=== PATIENT | female | born 1965 | race Caucasian/White ===

== ENCOUNTER 2016-05-22 10:00 | Emergency (ER) | payer SELFPAY ==
[~2016-05-22] VITALS: Ht 160 cm; Wt 68.0 kg
[~2016-05-22 10:00] MED LIST: ATEN-100 PO
[2016-05-22 10:05] VITALS: BP 136/63; PULSE 70; RESP 20; TEMP 97.8; O2SAT 96
[2016-05-22] MEDS ORDERED: VIST50CA PO (11:43)
--- NOTE | 2016-05-22 11:44 | PD ---
HPI Chief Complaint: Anxiety Time Seen by Provider: 11:42 Travel History International Travel<30 days: No Contact w/Intl Traveler<30days: No Traveled to known affect area: No History of Present Illness HPI 51-year-old female with history of anxiety, recent tragic of her daughter , presents to the emergency department requesting a prescription for "Ativan or Valium but Valium works best" to help with her anxiety. Patient has not yet sought evaluation or counseling for her anxiety. PFSH Past Medical History Heart Rhythm Problems: Yes Cardiovascular Problems: Yes Chest Pain: Yes Cerebrovascular Accident: No Diabetes: No Diminished Hearing: No Hypertension: Yes Myocardial Infarction: No : 10 Para: 5 Miscarriage: 3 : 2 Past Surgical History Cardiac Surgery: Yes (ABLATION ) Social History Alcohol Use: Yes (OCCASIONAL) Tobacco Use: No Substance Use: No Allergies-Medications (Allergen,Severity, Reaction): Coded Allergies: No Known Allergies (Unverified , 05/22/16) Reported Meds & Prescriptions Reported Meds & Active Scripts Active Vistaril (Hydroxyzine Pamoate) 50 Mg Cap 50 Mg PO TID PRN Reported Atenolol 25 Mg Tab 75 Mg PO DAILY Review of Systems Except as stated in HPI: all other systems reviewed are Neg Physical Exam Narrative GENERAL: Well-nourished female patient, in no acute distress SKIN: Warm and dry. HEAD: Atraumatic. Normocephalic. EYES: Pupils equal and round. No scleral icterus. No injection or drainage. ENT: No nasal bleeding or discharge. Mucous membranes pink and moist. NECK: Trachea midline. No JVD. CARDIOVASCULAR: Regular rate and rhythm. No murmur appreciated. RESPIRATORY: No accessory muscle use. Clear to auscultation. Breath sounds equal bilaterally. GASTROINTESTINAL: Abdomen soft, non-tender, nondistended. Hepatic and splenic margins not palpable. MUSCULOSKELETAL: No obvious deformities. No clubbing. No cyanosis. No edema. NEUROLOGICAL: Awake and alert. No obvious cranial nerve deficits. Motor grossly within normal limits. Normal speech. Data Data Last Documented VS Vital Signs Date Time Temp Pulse Resp B/P Pulse Ox O2 Delivery O2 Flow Rate FiO2 05/22/16 12:00 88 18 142/78 98 05/22/16 10:05 97.8 Room Air Orders Electrocardiogram (05/22/16 10:27) [facility] Medical Decision Making Medical Screen Exam Complete: Yes Emergency Medical Condition: Yes Medical Record Reviewed: Yes Differential Diagnosis Anxiety versus adjustment reaction disorder versus mood disorder versus personality disorder Narrative Course 51-year-old female presents to the emergency department requesting Valium or Ativan by name for anxiety associated with her daughter's recent . Patient has not yet sought counseling or psychiatric evaluation for her anxiety. She appears without distress. I have explained to her that I can give her a prescription for Vistaril here in the emergency department but follow -up is strongly encouraged so she can utilize appropriate coping mechanisms and be followed closely. This is likely an adjustment reaction disorder with associated anxiety. She is in agreement this clinic here. She'll be discharged at this time. Diagnosis Primary Impression: Anxiety Additional Impression: Adjustment reaction with anxiety Referrals: Primary Care Physician Patient Instructions: Anxiety (ED), General Instructions Departure Forms: Tests/Procedures, Work Release Enter return to work date: May 24, 2016 Additional Instructions: Seek counseling or psychiatric evaluation to help and properly manage with your anxiety Follow-up with a primary care provider Return immediately to the emergency department with any acute worsening of symptoms Med/Other Pt SpecificInfo: Prescription(s) given Scripts Hydroxyzine Pamoate (Vistaril)50 Mg Cap50 Mg PO TID PRN (ANXIETY) #21 CAP Ref 0 Prov:Germaine Machado 05/22/16 Disposition: 01 DISCHARGE HOME Condition: Stable Germaine Machado May 22, 2016 11:44
[2016-05-22 12:00] VITALS: BP 142/78
[2016-05-22] MEDS ORDERED: ATEN25TA PO (12:00)
--- NOTE | 2016-05-22 12:22 | EKG ---
Date Performed: 05/22/2016 Time Performed: 10:38:35 PTAGE: 51 years EKG: SINUS BRADYCARDIA NONSPECIFIC T-WAVE ABNORMALITY BORDERLINE ECG INTERPRETATION BASED ON A D EFAULT AGE OF 40 YEARS NO PREVIOUS TRACING DOCTOR: Javier Martínez Interpretating Date/Time 05/22/2016 12:19:56
== END 2016-05-22 12:03 | disposition home or self-care (01) ==
LOC: NETRI 10:00
DX: F41.9 Anxiety disorder, unspecified (principal); F43.22 Adjustment disorder with anxiety; I10 Essential (primary) hypertension; R94.31 Abnormal electrocardiogram [ECG] [EKG]
CPT/HCPCS: 93005

== ENCOUNTER 2016-11-05 18:34 | Emergency (ER) | payer SELFPAY ==
[~2016-11-05] VITALS: Ht 160 cm; Wt 75.0 kg
[~2016-11-05 18:34] MED LIST changes: -ATEN-100 PO; +ATEN25TA PO; +VIST50CA PO
[2016-11-05 18:36] VITALS: BP 192/89; PULSE 82; RESP 18; TEMP 98.2; O2SAT 97
[2016-11-05] MEDS ORDERED: PERM5CRE TOPICAL (19:28)
--- NOTE | 2016-11-05 19:28 | PD ---
HPI Chief Complaint: Skin Problem Time Seen by Provider: 19:23 Travel History International Travel<30 days: No Contact w/Intl Traveler<30days: No Traveled to known affect area: No History of Present Illness HPI Patient is a 51-year-old female presenting to emergency for evaluation of a rash. Patient states itchy. She denies any new soaps, lotions, detergents. She states that she was staying at home with multiple people and states she feels as if she has scabies. The rash is itchy ear at night, it is more prevalent in the folds of her arms, under her breasts, her wrists. She denies any fevers, chills, shortness of breath. She believes is scabies. Additionally patient states that she has a history of hypertension and takes atenolol 50 mg twice daily but did not take her medications this morning. She states that her prescription needs to be refilled, she does have an available prescription but has not filled it yet. PFSH Past Medical History Atrial Fibrillation: Yes Heart Rhythm Problems: Yes Cardiovascular Problems: Yes Chest Pain: Yes Cerebrovascular Accident: No Diabetes: No Diminished Hearing: No Hypertension: Yes Myocardial Infarction: No Tetanus Vaccination: Unknown ?: Not : 10 Para: 5 Miscarriage: 3 : 2 Past Surgical History Surgical History: No Previous Surgery Cardiac Surgery: Yes (ABLATION ) Social History Alcohol Use: No Tobacco Use: No Substance Use: No Allergies-Medications (Allergen,Severity, Reaction): Coded Allergies: No Known Allergies (Unverified , 11/05/16) Reported Meds & Prescriptions Reported Meds & Active Scripts Active Reported Atenolol 25 Mg Tab 50 Mg PO BID Review of Systems Except as stated in HPI: all other systems reviewed are Neg Skin: Positive Rash, Positive Itching Physical Exam Narrative GENERAL: Well-nourished, well-developed patient. SKIN: Focused skin assessment warm/dry. Macular, linear rash in bilateral antecubital spaces, under breasts, abdomen, wrists. No induration or erythema, no drainage noted. Mild excoriation on wrists. HEAD: Normocephalic. EYES: No scleral icterus. No injection or drainage. NECK: Supple, trachea midline. No JVD or lymphadenopathy. CARDIOVASCULAR: Regular rate and rhythm without murmurs, gallops, or rubs. RESPIRATORY: Breath sounds equal bilaterally. No accessory muscle use. GASTROINTESTINAL: Abdomen soft, non-tender, nondistended. MUSCULOSKELETAL: No cyanosis, or edema. BACK: Nontender without obvious deformity. No CVA tenderness. Data Data Last Documented VS Vital Signs Date Time Temp Pulse Resp B/P Pulse Ox O2 Delivery O2 Flow Rate FiO2 11/05/16 18:36 98.2 82 18 192/89 97 MDM Medical Decision Making Medical Screen Exam Complete: Yes Emergency Medical Condition: Yes Interpretation(s) Vital Signs Date Time Temp Pulse Resp B/P Pulse Ox O2 Delivery O2 Flow Rate FiO2 11/05/16 18:36 98.2 82 18 192/89 97 Differential Diagnosis Contact dermatitis versus scabies versus eczema versus psoriasis versus bedbugs versus other Narrative Course Patient is a 51 year old female presenting for evaluation of a rash that has been there for several weeks. The rash does appear to be consistent with scabies, patient will be provided with a prescription for permethrin, she was also given a coupon from [employer] due to cost. Patient will be given dose of atenolol now, she was advised to fill her prescription for her blood pressure medications to take consistently to avoid rebound hypertension. Patient verbalizes understanding of these instructions. She was educated on how to use the medication. She was advised to clean home environment thoroughly to avoid re-contamination. Patient verbalized understanding of discharge instructions. Patient stable for discharge. Diagnosis Primary Impression: Scabies Additional Impression: Hypertension Qualified Code: I10 - Essential hypertension Referrals: [facility] Primary Care Physician Patient Instructions: General Instructions, Scabies (ED) Additional Instructions: Use medications as directed Thoroughly cleaned home environment, linens to avoid re-contamination Itching may persist for several weeks even after successful treatment Follow-up with your primary doctor Take blood pressure medications consistently, do not skip doses to avoid rebound high blood pressure Return to emergency department for any new or worsening symptoms Med/Other Pt SpecificInfo: Prescription(s) given Scripts Permethrin Topical 5% 5% Cream1 Applic TOPICAL ONCE #1 TUBE Ref 1 Prov:AbrahamGina 11/05/16 Disposition: 01 DISCHARGE HOME Condition: Stable Gina Rosario Nov 05, 2016 19:28
[2016-11-05] MEDS ORDERED: ATENOLOL 50 MG TAB PO ONE (19:30)
== END 2016-11-05 19:59 | disposition home or self-care (01) ==
LOC: NEPK 18:34
DX: B86 Scabies (principal); I10 Essential (primary) hypertension
CPT/HCPCS: 99283

== ENCOUNTER 2017-06-05 22:58 | Emergency (ER) | payer SELFPAY ==
[~2017-06-05] VITALS: Ht 160 cm; Wt 78.0 kg
[~2017-06-05 22:58] MED LIST changes: +PERM5CRE TOPICAL; -VIST50CA PO
[2017-06-05 22:59] VITALS: BP 148/71; PULSE 90; RESP 20; TEMP 98; O2SAT 98
[2017-06-05 23:50] VITALS: BP 175/75; PULSE 69; RESP 18; O2SAT 98
[2017-06-06] MEDS ORDERED: DIAZEPAM 5 MG TAB PO ONE (00:30)
--- NOTE | 2017-06-06 00:38 | PD ---
HPI Chief Complaint: Chest Pain Time Seen by Provider: 23:22 Travel History International Travel<30 days: No Contact w/Intl Traveler<30days: No Traveled to known affect area: No History of Present Illness HPI Patient is a 52-year-old female who has had multiple stressors in her life over the last year she says that her daughter was in a motor vehicle accident brought to [place] and in the trauma unit she also reports that her to other daughters are distressed by her sister's loss and they are addicted to crystal meth she says she says she also has a daughter of one of the her daughters who is in foster care is all making her very stressed. She reports that she is not on any antidepressant however she reports that she was supposed to be on Valium which she took but there is no more left and now she is very stressed again. 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 Patient is awake alert and telling a long story of her stressful life with multiple losses and insecurity. Feels heart palpitation and emotional stress. denies CP no fever no diarrhea . PFSH Past Medical History Atrial Fibrillation: Yes (SHIN PARKINSON WHITE SYNDROME) Heart Rhythm Problems: Yes Cardiovascular Problems: Yes Chest Pain: Yes Cerebrovascular Accident: No Diabetes: No Diminished Hearing: No Hypertension: Yes Myocardial Infarction: No ?: Not : 10 Para: 5 Miscarriage: 3 : 2 Past Surgical History Cardiac Surgery: Yes (ABLATION ) Social History Alcohol Use: No Tobacco Use: No Substance Use: No Allergies-Medications (Allergen,Severity, Reaction): Coded Allergies: No Known Allergies (Unverified Adverse Reaction, Unknown, 06/05/17) Reported Meds & Prescriptions Reported Meds & Active Scripts Active Atenolol 50 Mg Tab 50 Mg PO BID Valium (Diazepam) 2 Mg Tab 2 Mg PO TID PRN Reported Atenolol 25 Mg Tab 50 Mg PO BID Review of Systems Except as stated in HPI: all other systems reviewed are Neg Psychiatric: Positive: Anxiety Physical Exam Narrative GENERAL: Appears slightly anxious SKIN: Warm and dry. HEAD: Atraumatic. Normocephalic. EYES: Pupils equal and round. No scleral icterus. No injection or drainage. ENT: No nasal bleeding or discharge. Mucous membranes pink and moist. NECK: Trachea midline. No JVD. CARDIOVASCULAR: Regular rate and rhythm. RESPIRATORY: No accessory muscle use. Clear to auscultation. Breath sounds equal bilaterally. GASTROINTESTINAL: Abdomen soft, non-tender, nondistended. Hepatic and splenic margins not palpable. MUSCULOSKELETAL: Extremities without clubbing, cyanosis, or edema. No obvious deformities. NEUROLOGICAL: Awake and alert. No obvious cranial nerve deficits. Motor grossly within normal limits. Five out of 5 muscle strength in the arms and legs. Normal speech. PSYCHIATRIC: Appropriate but stressed and anxious; insight and judgment normal. Data Data Last Documented VS Vital Signs Date Time Temp Pulse Resp B/P (MAP) Pulse Ox O2 Delivery O2 Flow Rate FiO2 06/06/17 02:32 06/05/17 23:50 69 18 98 Room Air 06/05/17 22:59 98.0 Orders Orders Electrocardiogram (06/05/17 ) Complete Blood Count With Diff (06/06/17 00:10) Comprehensive Metabolic Panel (06/06/17 00:10) Ckmb (Isoenzyme) Profile (06/06/17 00:10) Troponin I (06/06/17 00:10) Lipase (06/06/17 00:10) Diazepam (Valium) (06/06/17 00:30) Ed Discharge Order (06/06/17 01:32) Labs Laboratory Tests Test 06/06/17 00:33 White Blood Count 10.4 TH/MM3 Red Blood Count 4.68 MIL/MM3 Hemoglobin 13.3 GM/DL Hematocrit 38.7 % Mean Corpuscular Volume 82.7 FL Mean Corpuscular Hemoglobin 28.4 PG Mean Corpuscular Hemoglobin Concent 34.4 % Red Cell Distribution Width 14.9 % Platelet Count 270 TH/MM3 Mean Platelet Volume 9.4 FL Neutrophils (%) (Auto) 63.7 % Lymphocytes (%) (Auto) 26.6 % Monocytes (%) (Auto) 7.3 % Eosinophils (%) (Auto) 2.0 % Basophils (%) (Auto) 0.4 % Neutrophils # (Auto) 6.6 TH/MM3 Lymphocytes # (Auto) 2.8 TH/MM3 Monocytes # (Auto) 0.8 TH/MM3 Eosinophils # (Auto) 0.2 TH/MM3 Basophils # (Auto) 0.0 TH/MM3 CBC Comment DIFF FINAL Differential Comment Blood Urea Nitrogen 15 MG/DL Creatinine 0.63 MG/DL Random Glucose 100 MG/DL Total Protein 7.6 GM/DL Albumin 3.5 GM/DL Calcium Level 8.8 MG/DL Alkaline Phosphatase 92 U/L Aspartate Amino Transf (AST/SGOT) 22 U/L Alanine Aminotransferase (ALT/SGPT) 43 U/L Total Bilirubin 0.3 MG/DL Sodium Level 143 MEQ/L Potassium Level 3.5 MEQ/L Chloride Level 109 MEQ/L Carbon Dioxide Level 26.1 MEQ/L Anion Gap 8 MEQ/L Estimat Glomerular Filtration Rate 99 ML/MIN Total Creatine Kinase 70 U/L Troponin I LESS THAN 0.02 NG/ML Lipase 124 U/L [facility] Medical Decision Making Medical Screen Exam Complete: Yes Emergency Medical Condition: Yes Differential Diagnosis Stress related anxiety versus panic attack versus urinary issues Narrative Course Valium by mouth help reduce her symptoms EKG and negative troponin is normal safe for discharge follow-up with a few prescription Diagnosis Primary Impression: Stress reaction Additional Impressions: Adjustment reaction with anxiety Hypertension Patient Instructions: Anxiety (ED), General Instructions Scripts Atenolol (Atenolol) 50 Mg Tab 50 MG PO BID for Blood Pressure Management, #30 TAB 0 Refills Prov: Gregorio Nicholson MD 06/06/17 Diazepam (Valium) 2 Mg Tab 2 MG PO TID Y for ANXIETY, #12 TAB 0 Refills Prov: Gregorio Nicholson MD 06/06/17 Disposition: 01 DISCHARGE HOME Condition: Good Gregorio Nicholson MD Jun 06, 2017 00:38
[2017-06-06 00:53] LABS: AUTOMATED NEUTROPHIL # 6.6 TH/MM3 (1.8-7.7); BASOPHIL % 0.4 % (0.0-2.0); EOSINOPHIL # 0.2 TH/MM3 (0-0.4); HEMATOCRIT 38.7 % (35.0-46.0); HEMOGLOBIN 13.3 GM/DL (11.6-15.3); LYMPH % 26.6 % (9.0-44.0); LYMPHOCYTE # 2.8 TH/MM3 (1.0-4.8); MEAN CELL VOLUME 82.7 FL (80.0-100.0); MEAN CORPUSCULAR HEMOGLOBIN 28.4 PG (27.0-34.0); MEAN CORPUSCULAR HGB CONC 34.4 % (32.0-36.0); MEAN PLATELET VOLUME 9.4 FL (7.0-11.0); MONO % 7.3 % (0.0-8.0); MONOCYTE # 0.8 TH/MM3 (0-0.9); NEUT % 63.7 % (16.0-70.0); PLATELET COUNT 270 TH/MM3 (150-450); RED BLOOD COUNT 4.68 MIL/MM3 (4.00-5.30); RED CELL DISTRIBUTION WIDTH 14.9 % (11.6-17.2); WHITE BLOOD COUNT 10.4 TH/MM3 (4.0-11.0)
[2017-06-06 01:05] LABS: ALBUMIN 3.5 GM/DL (3.4-5.0); ALT (GPT) 43 U/L (10-53); AST (GOT) 22 U/L (15-37); BICARBONATE 26.1 MEQ/L (21.0-32.0); BLOOD UREA NITROGEN 15 MG/DL (7-18); CALCIUM 8.8 MG/DL (8.5-10.1); CHLORIDE 109 MEQ/L (98-107); CREATININE 0.63 MG/DL (0.50-1.00); GLOMERULAR FILTRATION RATE 99 ML/MIN (>89); GLUCOSE,RANDOM 100 MG/DL (74-106); LIPASE 124 U/L (73-393); SODIUM (NA) 143 MEQ/L (136-145)
[2017-06-06 01:10] LABS: ALKALINE PHOSPHATASE 92 U/L (45-117); TOTAL BILIRUBIN ADULT 0.3 MG/DL (0.2-1.0); TOTAL PROTEIN 7.6 GM/DL (6.4-8.2); TROPONIN I LESS THAN 0.02 NG/ML (0.02-0.05)
[2017-06-06] MEDS ORDERED: DIAZ2 PO (01:32)
[2017-06-06] MEDS ORDERED: ATEN50TA PO (02:11)
--- NOTE | 2017-06-06 08:07 | EKG ---
Date Performed: 06/05/2017 Time Performed: 23:16:08 PTAGE: 52 years EKG: Sinus rhythm NONSPECIFIC T-WAVE ABNORMALITY BORDERLINE ECG No significant change from prior electrocardiogram. PREVIOUS TRACING : 05/22/2016 10.38 DOCTOR: Bowen Cisneros Interpretating Date/Time 06/06/2017 08:06:21
== END 2017-06-06 02:40 | disposition home or self-care (01) ==
LOC: NEPE 22:58
DX: F43.22 Adjustment disorder with anxiety (principal); I10 Essential (primary) hypertension
CPT/HCPCS: 80053; 82550; 83690; 84484; 85025; 93005; 99284

== ENCOUNTER 2017-08-09 12:23 | Emergency (ER) | payer SELFPAY ==
[~2017-08-09] VITALS: Ht 160 cm; Wt 78.0 kg
[~2017-08-09 12:23] MED LIST changes: +ATEN50TA PO; +DIAZ2 PO; -PERM5CRE TOPICAL
[2017-08-09 12:39] VITALS: BP 151/65; PULSE 83; RESP 17; TEMP 99.1; O2SAT 98
--- NOTE | 2017-08-09 13:01 | RADRPT ---
EXAM DATE/TIME: 08/09/2017 12:55 [facility] COMPARISON: No previous studies available for comparison. INDICATIONS : Cough for the past few days. Congestion for past week. MEDICAL HISTORY : Hypertension. SURGICAL HISTORY : None. ENCOUNTER: Initial ACUITY: 1 week PAIN SCORE: 0/10 LOCATION: Bilateral chest FINDINGS: PA and lateral views of the chest demonstrate the lungs to be symmetrically aerated without evidence of mass, infiltrate or effusion. The cardiomediastinal contours are unremarkable. Osseous structure s are intact. CONCLUSION: No acute disease. Oscar Chavez MD on August 09, 2017 at 12:59 Board Certified Radiologist. This report was verified electronically.
[2017-08-09 14:30] VITALS: BP 162/77; PULSE 68; PULSE 71; RESP 16; TEMP 98.3; TEMP 98.5; O2SAT 100
--- NOTE | 2017-08-09 14:41 | PD ---
HPI Chief Complaint: Respiratory Symptoms Time Seen by Provider: 14:36 Travel History International Travel<30 days: No Contact w/Intl Traveler<30days: No Traveled to known affect area: No PFSH Past Medical History Atrial Fibrillation: Yes (SHIN PARKINSON WHITE SYNDROME) Heart Rhythm Problems: Yes Cardiovascular Problems: Yes Chest Pain: Yes Cerebrovascular Accident: No Diabetes: No Diminished Hearing: No Hypertension: Yes Myocardial Infarction: No : 10 Para: 5 Miscarriage: 3 : 2 Past Surgical History Cardiac Surgery: Yes (ABLATION ) Social History Alcohol Use: No Tobacco Use: No Substance Use: No Allergies-Medications (Allergen,Severity, Reaction): Coded Allergies: No Known Allergies (Unverified Adverse Reaction, Unknown, 08/09/17) Reported Meds & Prescriptions Reported Meds & Active Scripts Active Atenolol 50 Mg Tab 50 Mg PO BID Valium (Diazepam) 2 Mg Tab 2 Mg PO TID PRN Reported Atenolol 25 Mg Tab 50 Mg PO BID Data Data Last Documented VS Vital Signs Date Time Temp Pulse Resp B/P (MAP) Pulse Ox O2 Delivery O2 Flow Rate FiO2 08/09/17 14:30 100 Room Air 08/09/17 12:39 99.1 83 17 151/65 (93) Orders Orders Chest, Pa & Lat (08/09/17 12:42) Complete Blood Count With Diff (08/09/17 14:01) Comprehensive Metabolic Panel (08/09/17 14:01) Lactic Acid Sepsis Protocol (08/09/17 14:01) Influenzae A/B Antigen (08/09/17 14:01) Germaine Machado Aug 09, 2017 14:41
--- NOTE | 2017-08-09 15:17 | PD ---
HPI Chief Complaint: Respiratory Symptoms Time Seen by Provider: 14:36 Travel History International Travel<30 days: No Contact w/Intl Traveler<30days: No Traveled to known affect area: No History of Present Illness HPI 52-year-old female arrives with cough and runny nose along with aches and pains and fever for about 4 days. Symptoms have gradually worsened up until yesterday. She denies chest pain. PFSH Past Medical History Atrial Fibrillation: Yes (SHIN PARKINSON WHITE SYNDROME) Heart Rhythm Problems: Yes Cardiovascular Problems: Yes Chest Pain: Yes Cerebrovascular Accident: No Diabetes: No Diminished Hearing: No Hypertension: Yes Myocardial Infarction: No : 10 Para: 5 Miscarriage: 3 : 2 Past Surgical History Cardiac Surgery: Yes (ABLATION ) Social History Alcohol Use: No Tobacco Use: No Substance Use: No Allergies-Medications (Allergen,Severity, Reaction): Coded Allergies: No Known Allergies (Unverified Adverse Reaction, Unknown, 08/09/17) Reported Meds & Prescriptions Reported Meds & Active Scripts Active Proair Hfa 8.5 GM Inh (Albuterol Sulfate) 90 Mcg/Act Aer 2 Puff INH Q6H PRN 108 mcg/actuation Azithromycin 250 Mg Tab 250 Mg PO DIRECTED Take 2 tabs (500 mg) on day 1 then 1 tab daily x 4 days. Atenolol 50 Mg Tab 50 Mg PO BID Reported Atenolol 25 Mg Tab 50 Mg PO BID Review of Systems Except as stated in HPI: all other systems reviewed are Neg General / Constitutional: No: Fever Physical Exam Narrative GENERAL: 52-year-old female pleasant well-nourished well-developed SKIN: Warm and dry. HEAD: Atraumatic. Normocephalic. Vital Signs Date Time Temp Pulse Resp B/P (MAP) Pulse Ox O2 Delivery O2 Flow Rate FiO2 08/09/17 14:30 98.3 68 16 162/77 (105) 100 Room Air 08/09/17 14:30 98.5 71 16 162/77 (105) 100 Room Air 08/09/17 14:30 76 18 100 Room Air 08/09/17 12:39 99.1 83 17 151/65 (93) 98 ENT: No nasal bleeding or discharge. Mucous membranes pink and moist. Posterior oropharynx widely patent. There is no tonsillar erythema exudate asymmetry or deviation soft palate. NECK: Trachea midline. No JVD. CARDIOVASCULAR: Regular rate and rhythm. RESPIRATORY: No accessory muscle use. Clear to auscultation. Breath sounds equal bilaterally. GASTROINTESTINAL: Abdomen soft, non-tender, nondistended. Hepatic and splenic margins not palpable. MUSCULOSKELETAL: Extremities without clubbing, cyanosis, or edema. No obvious deformities. NEUROLOGICAL: Awake and alert. No obvious cranial nerve deficits. Motor grossly within normal limits. Five out of 5 muscle strength in the arms and legs. Normal speech. PSYCHIATRIC: Appropriate mood and affect; insight and judgment normal. Data Data Last Documented VS Vital Signs Date Time Temp Pulse Resp B/P (MAP) Pulse Ox O2 Delivery O2 Flow Rate FiO2 08/09/17 14:30 98.3 68 16 162/77 (105) 100 Room Air Orders Orders Chest, Pa & Lat (08/09/17 12:42) Ed Discharge Order (08/09/17 15:17) [facility] Medical Decision Making Medical Screen Exam Complete: Yes Emergency Medical Condition: Yes Differential Diagnosis bronchitis, viral syndrome, pna Narrative Course CXR: no dense consolidation Pt with URI, possibly PNA or influenza. Pt outside of period for Tamiflu. Scripts as below. Diagnosis Primary Impression: Bronchitis Additional Impression: Viral syndrome Referrals: Primary Care Physician 2 days Med/Other Pt SpecificInfo: Prescription(s) given Scripts Albuterol 8.5 GM Inh (Proair Hfa 8.5 GM Inh) 90 Mcg/Act Aer 2 PUFF INH Q6H Y for SHORTNESS OF BREATH, #1 INHALER 0 Refills 108 mcg/actuation Prov: Leroy Coto MD 08/09/17 Azithromycin (Azithromycin) 250 Mg Tab 250 MG PO DIRECTED for Infection, #6 TAB 0 Refills Take 2 tabs (500 mg) on day 1 then 1 tab daily x 4 days. Prov: Leroy Coto MD 08/09/17 Disposition: 01 DISCHARGE HOME Condition: Stable Leroy Coto MD Aug 09, 2017 15:17
[2017-08-09] MEDS ORDERED: AZIT250T3 PO (15:24)
[2017-08-09] MEDS ORDERED: ALBUAER3 INH (15:24)
[2017-08-09] MEDS ORDERED: RESP: ALBUTEROL 2.5 MG/3 ML NEB (SCH) NEB ONE (15:45)
[2017-08-09] MEDS ORDERED: PRED20 PO ×2 (15:50→15:51)
[2017-08-09 16:00] VITALS: BP 152/81; TEMP 97.8
== END 2017-08-09 16:04 | disposition home or self-care (01) ==
LOC: NEPD 12:23
DX: J40 Bronchitis, not specified as acute or chronic (principal); B34.9 Viral infection, unspecified; I45.6 Pre-excitation syndrome; I10 Essential (primary) hypertension; Z79.899 Other long term (current) drug therapy
CPT/HCPCS: 71046; 94664; 99283; J7613

== ENCOUNTER 2017-09-30 10:25 | Emergency (ER) | payer SELFPAY ==
[~2017-09-30] VITALS: Ht 160 cm; Wt 77.2 kg
[~2017-09-30 10:25] MED LIST changes: +ALBUAER3 INH; +AZIT250T3 PO; -DIAZ2 PO; +PRED20 PO
[2017-09-30 10:34] VITALS: BP 165/72; PULSE 60; RESP 16; TEMP 98.3; O2SAT 97
--- NOTE | 2017-09-30 11:18 | PD ---
HPI Chief Complaint: Flank/Kidney Pain Time Seen by Provider: 11:18 Travel History International Travel<30 days: No Contact w/Intl Traveler<30days: No Traveled to known affect area: No History of Present Illness HPI 52-year-old female came to the emergency room with history of left flank pain and dysuria. Patient says the dysuria has been going on for past couple days but the flank pain has been there for little over a month. In fact patient was seen in another emergency room in [place] for this flank pain where she thinks the CAT scan was done and she was told that she could possibly have kidney stones. No hematuria. No history of fever or chills. Vital signs were stable. The left flank pain radiates to the left lower quadrant. Patient does not have an established history of previous kidney stones. She says sometimes the pain is 9 out of 10. It comes and goes. Currently she is in pain. No aggravating or relieving symptoms identified. She complains of occasional nausea associated with the pain. [facility] Past Medical History Narrative Medical List of her past medical, surgical, social and family history is reviewed from the nursing note Atrial Fibrillation: Yes ([employer] [place] WHITE SYNDROME) Heart Rhythm Problems: Yes Cardiovascular Problems: Yes (WPW, ABLATION 1992) Chest Pain: Yes Cerebrovascular Accident: No Diabetes: No Diminished Hearing: No Hypertension: Yes Myocardial Infarction: No Menopausal: Yes : 10 Para: 5 Miscarriage: 3 : 2 Past Surgical History Cardiac Surgery: Yes (ABLATION ) Social History Alcohol Use: No Tobacco Use: No Substance Use: No Allergies-Medications (Allergen,Severity, Reaction): Coded Allergies: No Known Allergies (Unverified Adverse Reaction, Unknown, 09/30/17) Comments No known drug allergies. Reported Meds & Prescriptions Reported Meds & Active Scripts Active Zofran Odt (Ondansetron Odt) 4 Mg Tab 4 Mg SL Q6HR PRN Hydrocodone-Acetaminophen 5-325 mg Tab 1 Tab PO Q6H PRN 3 Days Proair Hfa 8.5 GM Inh (Albuterol Sulfate) 90 Mcg/Act Aer 2 Puff INH Q6H PRN 108 mcg/actuation Atenolol 50 Mg Tab 50 Mg PO BID Reported Atenolol 25 Mg Tab 50 Mg PO BID Narrative Medication List of her home medications reviewed from the nursing note. Review of Systems Except as stated in HPI: all other systems reviewed are Neg Genitourinary: Positive: Dysuria, Flank Pain Physical Exam Narrative GENERAL: Awake, alert, mild distress SKIN: Focused skin assessment warm/dry. HEAD: Atraumatic. Normocephalic. EYES: Pupils equal and round. No scleral icterus. No injection or drainage. ENT: No nasal bleeding or discharge. Mucous membranes pink and moist. NECK: Trachea midline. No JVD. CARDIOVASCULAR: Regular rate and rhythm. No murmur appreciated. RESPIRATORY: No accessory muscle use. Clear to auscultation. Breath sounds equal bilaterally. GASTROINTESTINAL: Abdomen soft, non-tender, nondistended. Hepatic and splenic margins not palpable. MUSCULOSKELETAL: No obvious deformities. No clubbing. No cyanosis. No edema. NEUROLOGICAL: Awake and alert. No obvious cranial nerve deficits. Motor grossly within normal limits. Normal speech. PSYCHIATRIC: Appropriate mood and affect; insight and judgment normal. Data Data Last Documented VS Orders Orders Complete Blood Count With Diff (09/30/17 11:24) Comprehensive Metabolic Panel (09/30/17 11:24) Ct Abd/Pel W/O Iv Contrast (09/30/17 11:24) Ecg Monitoring (09/30/17 11:24) Iv Access Insert/Monitor (09/30/17 11:24) Ketorolac Inj (Toradol Inj) (09/30/17 11:30) Sodium Chloride 0.9% Flush (Ns Flush) (09/30/17 11:30) Sodium Chlor 0.9% 1000 Ml Inj (Ns 1000 M (09/30/17 11:24) Urinalysis - C+S If Indicated (09/30/17 11:24) Mandatory Outpatient Referral (09/30/17 14:00) Ed Discharge Order (09/30/17 14:04) Labs Laboratory Tests Test 09/30/17 11:40 09/30/17 12:00 Urine Color LIGHT-YELLOW Urine Turbidity CLEAR Urine pH 5.5 Urine Specific Kendrick 1.013 Urine Protein NEG mg/dL Urine Glucose (UA) NEG mg/dL Urine Ketones NEG mg/dL Urine Occult Blood MOD Urine Nitrite NEG Urine Bilirubin NEG Urine Urobilinogen LESS THAN 2.0 MG/DL Urine Leukocyte Esterase TRACE Urine RBC 5 /hpf Urine WBC 5 /hpf Urine Squamous Epithelial Cells 6 /hpf Urine Mucus FEW /lpf Microscopic Urinalysis Comment CULT NOT INDICATED White Blood Count 10.5 TH/MM3 Red Blood Count 4.36 MIL/MM3 Hemoglobin 12.7 GM/DL Hematocrit 36.2 % Mean Corpuscular Volume 83.0 FL Mean Corpuscular Hemoglobin 29.2 PG Mean Corpuscular Hemoglobin Concent 35.2 % Red Cell Distribution Width 13.3 % Platelet Count 230 TH/MM3 Mean Platelet Volume 9.2 FL Neutrophils (%) (Auto) 72.4 % Lymphocytes (%) (Auto) 19.0 % Monocytes (%) (Auto) 6.6 % Eosinophils (%) (Auto) 1.3 % Basophils (%) (Auto) 0.7 % Neutrophils # (Auto) 7.6 TH/MM3 Lymphocytes # (Auto) 2.0 TH/MM3 Monocytes # (Auto) 0.7 TH/MM3 Eosinophils # (Auto) 0.1 TH/MM3 Basophils # (Auto) 0.1 TH/MM3 CBC Comment DIFF FINAL Differential Comment Blood Urea Nitrogen 14 MG/DL Creatinine 0.97 MG/DL Random Glucose 84 MG/DL Total Protein 7.1 GM/DL Albumin 3.3 GM/DL Calcium Level 8.6 MG/DL Alkaline Phosphatase 92 U/L Aspartate Amino Transf (AST/SGOT) 20 U/L Alanine Aminotransferase (ALT/SGPT) 28 U/L Total Bilirubin 0.3 MG/DL Sodium Level 142 MEQ/L Potassium Level 3.6 MEQ/L Chloride Level 106 MEQ/L Carbon Dioxide Level 26.6 MEQ/L Anion Gap 9 MEQ/L Estimat Glomerular Filtration Rate 60 ML/MIN MDM Medical Decision Making Medical Screen Exam Complete: Yes Emergency Medical Condition: Yes Medical Record Reviewed: Yes Differential Diagnosis Renal colic, musculoskeletal pain, UTI, pyelonephritis Narrative Course 12:38 PM awaiting for chemistry and UA. CBC is back and within normal limits. Awaiting for the CAT scan to be done and resulted. Patient was given pain medication. 1:[address] scan report just came back and shows severe hydronephrosis and hydroureter on the left side with 1 cm obstructing calculi mid ureter. I put a call out for the urologist. Awaiting for him to call back. 2:04 PM I discussed the case with Dr. Petersen from urology who thinks that patient can go home if her pain is under control and he can follow up with her in his office. I went and reassessed the patient and she said her pain was much better after the Toradol. I let her know that she will be discharged home and she would have to follow-up with the urologist. She could be seen as soon as tomorrow if she calls the office. At this point patient told me she does not have any insurance and started to get very argumentative about the fact that there is no facility available to see patients who do not have insurance by consultants. I explained to her that I would order a mandatory referral which I have done as a stat for Dr. Petersen which was the best that could be done under the circumstances. At this point patient asked me if she could go home on Valium. I educated her that Valium is a sleeping pill and there was no need for sleeping pill at this point but she would get pain medication prescription. She once again got very agitated and said that it was for anxiety and she always gets refills here in this emergency room for it. She thought that I was not being very nice to her. I decided to leave the room since this conversation did not seem like it was going anywhere at this point. She will be discharged home with all the instructions that I have already gone with her verbally and prescriptions. Procedures EKG Prior to Arrival: No Diagnosis Primary Impression: Ureteral calculus Additional Impression: Hydroureter Referrals: Loco Petersen MD 3 days Additional Instructions: Call the urologist was name and number been provided to you in case you do not hear back from the office in a day or 2. Take the medication as per the prescription direction. Return to the ER if condition worsens or any other new concerns. Med/Other Pt SpecificInfo: Prescription(s) given Scripts Ondansetron Odt (Zofran Odt) 4 Mg Tab 4 MG SL Q6HR Y for Nausea/Vomiting, #30 TAB 0 Refills Prov: Paxton Brown MD 09/30/17 Hydrocodone-Acetaminophen (Hydrocodone-Acetaminophen) 5-325 mg Tab 1 TAB PO Q6H Y for PAIN for 3 Days, #12 TAB 0 Refills Prov: Paxton Brown MD 09/30/17 Disposition: 01 DISCHARGE HOME Condition: Stable Paxton Brown MD September 30, 2017 11:18
[2017-09-30] MEDS ORDERED: SODIUM CHLOR 0.9% 1000 ML INJ 1,000 ML IV ONE (11:24)
[2017-09-30] MEDS ORDERED: SODIUM CHLORIDE 0.9% FLUSH 10 ML FLUSH IVF PRN (11:30)
[2017-09-30] MEDS ORDERED: KETOROLAC TROMETHAMINE 30 MG/ML (IVP) VIAL IV PUSH ONE (11:30)
[2017-09-30 12:20] LABS: AUTOMATED NEUTROPHIL # 7.6 TH/MM3 (1.8-7.7); BASOPHIL # 0.1 TH/MM3 (0-0.2); BASOPHIL % 0.7 % (0.0-2.0); EOSINOPHIL # 0.1 TH/MM3 (0-0.4); EOSINOPHIL % 1.3 % (0.0-4.0); HEMATOCRIT 36.2 % (35.0-46.0); HEMOGLOBIN 12.7 GM/DL (11.6-15.3); MEAN CORPUSCULAR HEMOGLOBIN 29.2 PG (27.0-34.0); MEAN CORPUSCULAR HGB CONC 35.2 % (32.0-36.0); MEAN PLATELET VOLUME 9.2 FL (7.0-11.0); MONO % 6.6 % (0.0-8.0); MONOCYTE # 0.7 TH/MM3 (0-0.9); NEUT % 72.4 % (16.0-70.0); PLATELET COUNT 230 TH/MM3 (150-450); RED BLOOD COUNT 4.36 MIL/MM3 (4.00-5.30); RED CELL DISTRIBUTION WIDTH 13.3 % (11.6-17.2); WHITE BLOOD COUNT 10.5 TH/MM3 (4.0-11.0)
[2017-09-30 12:34] LABS: ALBUMIN 3.3 GM/DL (3.4-5.0); ALT (GPT) 28 U/L (10-53); AST (GOT) 20 U/L (15-37); BICARBONATE 26.6 MEQ/L (21.0-32.0); BLOOD UREA NITROGEN 14 MG/DL (7-18); CALCIUM 8.6 MG/DL (8.5-10.1); CHLORIDE 106 MEQ/L (98-107); CREATININE 0.97 MG/DL (0.50-1.00); GLOMERULAR FILTRATION RATE 60 ML/MIN (>89); GLUCOSE,RANDOM 84 MG/DL (74-106); SODIUM (NA) 142 MEQ/L (136-145)
[2017-09-30 12:37] LABS: BILIRUBIN, URINE NEG (NEG); BLOOD, URINE MOD (NEG); GLUCOSE,URINE NEG (NEG); KETONE, URINE NEG (NEG); MUCUS URINE FEW /lpf (OCC); NITRITE,URINE NEG (NEG); PH, URINE 5.5 (5.0-8.5); SQUAMOUS EPITHELIAL CELL URINE 6 /hpf (0-5); URINE COLOR LIGHT-YELLOW (YELLW/STRAW); URINE LEUKOCYTE ESTERASE TRACE (NEG)
[2017-09-30 12:37] LABS: ALKALINE PHOSPHATASE 92 U/L (45-117); TOTAL BILIRUBIN ADULT 0.3 MG/DL (0.2-1.0); TOTAL PROTEIN 7.1 GM/DL (6.4-8.2)
--- NOTE | 2017-09-30 13:25 | RADRPT ---
EXAM DATE/TIME: 09/30/2017 12:59 [facility] COMPARISON: No previous studies available for comparison. INDICATIONS : Patient complains of left flank pain. ORAL CONTRAST: No oral contrast ingested. RADIATION DOSE: 7.31 CTDIvol (mGy) MEDICAL HISTORY : Cardiovascular disease. Hypertension. SURGICAL HISTORY : None. ENCOUNTER: Initial ACUITY: 1 day PAIN SCALE: 7/10 LOCATION: Left flank TECHNIQUE: Volumetric scanning of the abdomen and pelvis was performed. Using automated exposure control and ad justment of the mA and/or kV according to patient size, radiation dose was kept as low as reasonably achievable to obtain optimal diagnostic quality images. DICOM format image data is available electro nically for review and comparison. FINDINGS: One bases are clear. The osseous structures are intact. No pleural or pericardial effusions are seen. Liver, gallbladder, adrenals, spleen, pancreas, small and large bowel are unremarkable. Urinary blad kate, uterus and ovaries are unremarkable. Small and large bowel and appendix are normal. No adenopath y or aneurysm. There is a fat containing hernia identified on image 52. There are numerous nonobstructing right renal calculi identified, the largest at the lower pole measu ring 9.2 mm. There are numerous nonobstructing left renal calculi, the largest in the midpole measuri ng 5.9 mm. There is mild left-sided hydronephrosis and hydroureter identified secondary to an obstruc ting calculus on image 68 measuring 1 cm in AP dimension. This is noted adjacent to the inferior mukund in of the left sacroiliac joint. Coronal images suggest the possibility of more than one stone at thi s level. CONCLUSION: Left ureteral calculi are present with up stream hydronephrosis. Multiple bilateral nonobstructing re nal calculi. James Gu MD on September 30, 2017 at 13:19 Board Certified Radiologist. This report was verified electronically.
[2017-09-30] MEDS ORDERED: HYDR-3516 PO (14:09)
[2017-09-30] MEDS ORDERED: ZOFR4TAB3 SL (14:09)
[2017-09-30 14:35] VITALS: BP 162/70
== END 2017-09-30 14:45 | disposition home or self-care (01) ==
LOC: NEPD 10:25
DX: N13.2 Hydronephrosis with renal and ureteral calculous obstruction (principal); I10 Essential (primary) hypertension
CPT/HCPCS: 74176; 80053; 81001; 85025; 96361; 96374; 99284; J1885; J7030